=== PATIENT | male | born 1985 | race Native Hawaiian/Other Pacific Islander ===

== ENCOUNTER 2016-09-30 11:35 | Emergency (ER) | payer OTHER ==
[~2016-09-30] VITALS: Ht 190.5 cm; Wt 157.9 kg
[2016-09-30] MEDS ORDERED: OMEPRAZOLE40 MG OR (11:57)
[2016-09-30] MEDS ORDERED: METOPROLOL25 M1 OR (11:57)
[2016-09-30] MEDS ORDERED: ASPIR-8181 MG OR (11:58)
== END 2016-09-30 13:38 | disposition home or self-care (01) ==
LOC: ED 11:35
DX: S70.02XA Contusion of left hip, initial encounter (principal); S80.02XA Contusion of left knee, initial encounter; S40.011A Contusion of right shoulder, initial encounter; S13.9XXA Sprain of joints and ligaments of unspecified parts of neck, initial encounter; V43.62XA Car passenger injured in collision with other type car in traffic accident, initial encounter
CPT/HCPCS: 99283

== ENCOUNTER 2017-06-02 22:20 | Emergency (ER) | payer BC ==
[~2017-06-02] VITALS: Ht 193 cm; Wt 163.7 kg
[~2017-06-02 22:20] MED LIST: ASPIR-8181 MG OR; METOPROLOL25 M1 OR; OMEPRAZOLE40 MG OR
[2017-06-02 22:56] LABS: PLATELET COUNT 319 K/uL (142-355)
== END 2017-06-02 23:38 | disposition home or self-care (01) ==
LOC: ED 22:20
DX: J02.9 Acute pharyngitis, unspecified (principal)
CPT/HCPCS: 36415; 85027; 87081; 87804; 87880; 99283